=== PATIENT | female | born 1980 | race Caucasian/White ===

== ENCOUNTER 2017-02-14 09:30 | Emergency (ER) | payer SELFPAY ==
[2017-02-14] MEDS ORDERED: diphenhydrAMINE 50 MG/ML SDV IVPUSH ONE (10:00)
[2017-02-14] MEDS ORDERED: Sodium Chloride 0.9% 1,000 ML IV ONE (10:00)
[2017-02-14] MEDS ORDERED: Ondansetron 4 MG/2 ML SDV IVPUSH ONE (10:00)
[2017-02-14] MEDS ORDERED: Ketorolac 30 MG/ML SDV IVPUSH ONE (10:00)
[2017-02-14] MEDS ORDERED: Metoclopramide 10 MG/2 ML SDV IV ONE (10:00)
--- NOTE | 2017-02-14 10:08 | EDM.PDOC ---
ED HPI GENERAL MEDICAL PROBLEM - General Chief Complaint: Headache Stated Complaint: DIZZY Time Seen by Provider: 02/14/17 09:59 - History of Present Illness INITIAL COMMENTS - FREE TEXT/NARRATIVE: HISTORY AND PHYSICAL: History of present illness: Patient 36-year-old female presents with concern of headache she's had this 2 days she states she has history of migraine headaches for years ago but she's been migraine free for the better part of a decade she denies any trauma fever chills she equivocates regarding nausea and photophobia. No neck pain or stiffness no cough no shortness of breath no sore throat or other concerns Review of systems: As per history of present illness and below otherwise all systems reviewed and negative. Past medical history: As per history of present illness and as reviewed below otherwise noncontributory. Surgical history: As per history of present illness and as reviewed below otherwise noncontributory. Social history: No reported history of drug or alcohol abuse. Family history: As per history of present illness and as reviewed below otherwise noncontributory. Physical exam: HEENT: Atraumatic, normocephalic, pupils reactive, negative for conjunctival pallor or scleral icterus, mucous membranes moist, throat clear, neck supple, nontender, trachea midline. Lungs: Clear to auscultation, breath sounds equal bilaterally, chest nontender. Heart: S1S2, regular, negative for clicks, rubs, or JVD. Abdomen: Soft, nondistended, nontender. Negative for masses or hepatosplenomegaly. Negative for costovertebral tenderness. Pelvis: Stable nontender. Genitourinary: Deferred. Rectal: Deferred. Extremities: Atraumatic, negative for cords or calf pain. Neurovascular unremarkable. Neuro: Awake, alert, oriented. Cranial nerves II through XII unremarkable. Cerebellum unremarkable. Motor and sensory unremarkable throughout. Exam nonfocal. Diagnostics: CT brain Therapeutics: Saline 1 L bolus Toradol 30 mg IV Reglan 10 mg IV Zofran 4 mg IV and Benadryl 50 mg IV Impression: #1 cephalgia #2 history of migraine headache Definitive disposition and diagnosis as appropriate pending reevaluation and review of above. Frontal Headache Pain Score (Numeric/FACES): 10 - Related Data Allergies Allergy/AdvReac Type Severity Reaction Status Date / Time No Known Allergies Allergy Verified 02/14/17 09:32 Home Meds: Home Meds . [No Known Home Meds] 02/14/17 [History] Past Medical History Cardiovascular History: Reports: None Respiratory History: Reports: None Gastrointestinal History: Reports: None Genitourinary History: Reports: None [employer] History: Reports: None Musculoskeletal History: Reports: None Neurological History: Reports: None Psychiatric History: Reports: None Endocrine/Metabolic History: Reports: None Dermatologic History: Reports: None - Infectious Disease History Infectious Disease History: Reports: Chicken Pox - Past Surgical History HEENT Surgical History: Reports: Tonsillectomy GI Surgical History: Reports: None Female Surgical History: Reports: Section Musculoskeletal Surgical History: Reports: None Dermatological Surgical History: Reports: None Social & Family History - Tobacco Use Smoking Status *Q: Current Every Day Smoker Years of Tobacco use: 18 Packs/Tins Daily: 0.4 ED ROS GENERAL - Review of Systems Review Of Systems: ROS reveals no pertinent complaints other than HPI. ED EXAM, GENERAL - Physical Exam Exam: See Below (Dictated) Course - Vital Signs Last Recorded V/S: Last Vital Signs Temp 36.9 C 02/14/17 09:32 Pulse 83 02/14/17 09:32 Resp 20 02/14/17 09:32 BP 130/75 02/14/17 09:32 Pulse Ox 99 02/14/17 09:32 - Orders/Labs/Meds Orders: Active Orders 24 hr Category Date Time Status Sodium Chloride 0.9% [Normal Saline] 1,000 ml Med 02/14/17 10:00 Active IV STAT Medication Orders Sodium Chloride (Normal Saline) 1,000 mls @ 999 mls/hr IV STAT ONE Stop: 02/14/17 11:00 Last Admin: 02/14/17 10:06 Dose: 999 mls/hr Meds: Medications Generic Name Dose Route Start Last Admin Trade Name Freq PRN Reason Stop Dose Admin Sodium Chloride 1,000 mls @ 999 mls/hr 02/14/17 10:00 02/14/17 10:06 Normal Saline IV 02/14/17 11:00 999 mls/hr STAT ONE Administration Discontinued Medications Generic Name Dose Route Start Last Admin Trade Name Freq PRN Reason Stop Dose Admin Diphenhydramine HCl 50 mg 02/14/17 10:00 02/14/17 10:08 Benadryl IVPUSH 02/14/17 10:01 50 mg ONETIME ONE Administration Ketorolac Tromethamine 30 mg 02/14/17 10:00 02/14/17 10:07 Toradol IVPUSH 02/14/17 10:01 30 mg ONETIME ONE Administration Metoclopramide HCl 10 mg 02/14/17 10:00 02/14/17 10:08 Reglan IV 02/14/17 10:01 10 mg ONETIME ONE Administration Ondansetron HCl 4 mg 02/14/17 10:00 02/14/17 10:05 Zofran IVPUSH 02/14/17 10:01 4 mg ONETIME ONE Administration Departure - Departure Time of Disposition: 10:42 Disposition: Home, Self-Care 01 Condition: Good Clinical Impression: Cephalgia - Discharge Information Referrals: PCP,None [Primary Care Provider] - Forms: ED Department Discharge Additional Instructions: The following information is given to patients seen in the emergency department who are being discharged to home. This information is to outline your options for follow-up care. We provide all patients seen in our emergency department with a follow-up referral. The need for follow-up, as well as the timing and circumstances, are variable depending upon the specifics of your emergency department visit. If you don't have a primary care physician on staff, we will provide you with a referral. We always advise you to contact your personal physician following an emergency department visit to inform them of the circumstance of the visit and for follow-up with them and/or the need for any referrals to a consulting specialist. The emergency department will also refer you to a specialist when appropriate. This referral assures that you have the opportunity for followup care with a specialist. All of these measure are taken in an effort to provide you with optimal care, which includes your followup. Under all circumstances we always encourage you to contact your private physician who remains a resource for coordinating your care. When calling for followup care, please make the office aware that this follow-up is from your recent emergency room visit. If for any reason you are refused follow-up, please contact the [facility] emergency department at and asked to speak to the emergency department charge nurse. [facility] [address] [place] [id number] [facility] - Neurology Professional Building [address] [place] [address], [address] [place] [address] Follow-up primary medical doctor and/or clinic above call to schedule appointment with neurology above return as needed as discussed - My Orders Last 24 Hours: My Active Orders 02/14/17 10:00 Sodium Chloride 0.9% [Normal Saline] 1,000 ml IV STAT - Assessment/Plan Last 24 Hours: My Active Orders 02/14/17 10:00 Sodium Chloride 0.9% [Normal Saline] 1,000 ml IV STAT
[2017-02-14 10:45] VITALS: BP 118/71
== END 2017-02-14 10:51 | disposition home or self-care (01) ==
LOC: MW.ED 09:30
DX: R51 Headache (principal); F17.210 Nicotine dependence, cigarettes, uncomplicated; Z98.890 Other specified postprocedural states
CPT/HCPCS: 96361; 96374; 96375; 99283; J1200; J1885; J2405; J2765; J7040; 99282

== ENCOUNTER 2019-04-08 09:54 | Emergency (ER) | payer BC, OTHER ==
[2019-04-08 10:06] VITALS: BP 144/84; PULSE 80
--- NOTE | 2019-04-08 10:12 | EDM.PDOC ---
ED HPI GENERAL MEDICAL PROBLEM - General Chief Complaint: Skin Complaint Stated Complaint: SWOLLEN RT FOOT Time Seen by Provider: 04/08/19 10:06 Source of Information: Reports: Patient History Limitations: Reports: No Limitations - History of Present Illness INITIAL COMMENTS - FREE TEXT/NARRATIVE: HISTORY AND PHYSICAL: History of present illness: Patient is a 38-year-old female presents to the ED with complaint of left pinky toe pain. She states she thought it was a fungal infection and has been using OTC fungal cream. She has since developed a blister to the bottom of the foot. She denies fevers, chills, injury or trauma. She denies significant past medical history. Review of systems: As per history of present illness and below otherwise all systems reviewed and negative. Past medical history: As per history of present illness and as reviewed below otherwise noncontributory. Surgical history: As per history of present illness and as reviewed below otherwise noncontributory. Social history: No reported history of drug or alcohol abuse. Family history: As per history of present illness and as reviewed below otherwise noncontributory. Physical exam: General: Patient sitting comfortably in no acute distress and nontoxic appearing HEENT: Atraumatic, normocephalic, pupils reactive, negative for conjunctival pallor or scleral icterus, mucous membranes moist, throat clear, neck supple, nontender, trachea midline. No meningeal signs. Lungs: Clear to auscultation, breath sounds equal bilaterally, chest nontender. Heart: S1S2, regular, negative for clicks, rubs, or overt murmur. Abdomen: Soft, nondistended, nontender. Negative for masses or hepatosplenomegaly. Negative for costovertebral tenderness. No rigidity, rebound , guarding. Pelvis: Stable nontender. Genitourinary: Deferred. Rectal: Deferred. Extremities: There is a blister to the plantar surface of the foot at the base of the 5th digit with mild surrounding erythema. Serous fluid draining from the blister. negative for cords or calf pain. Neurovascular unremarkable. Neuro: Awake, alert, oriented. Cranial nerves II through XII unremarkable. Cerebellum unremarkable. Motor and sensory unremarkable throughout. Exam nonfocal. Notes: Diagnostics: [] Therapeutics: [] Prescriptions: Bactrim Impression: Cellulitis Plan: Take antibiotic as instructed Follow up with primary care provider Return to ED as needed as discussed Definitive disposition and diagnosis as appropriate pending reevaluation and review of above. 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 Musculoskeletal History: Reports: None Neurological History: Reports: None Psychiatric History: Reports: None Endocrine/Metabolic History: Reports: None Dermatologic History: Reports: None - Infectious Disease History Infectious Disease History: Reports: Chicken Pox - Past Surgical History HEENT Surgical History: Reports: Tonsillectomy GI Surgical History: Reports: None Female Surgical History: Reports: Section Musculoskeletal Surgical History: Reports: None Dermatological Surgical History: Reports: None ED ROS GENERAL - Review of Systems Review Of Systems: ROS reveals no pertinent complaints other than HPI. ED EXAM, SKIN/RASH Exam: See Below (see dictation) Course - Vital Signs Last Recorded V/S: Last Vital Signs Temp 96.8 F 04/08/19 10:04 Pulse 80 04/08/19 10:04 Resp 18 04/08/19 10:04 BP 144/84 H 04/08/19 10:04 Pulse Ox 94 L 04/08/19 10:04 Departure - Departure Time of Disposition: 10:09 Disposition: Home, Self-Care 01 Condition: Good Clinical Impression: Cellulitis - Discharge Information Prescriptions: Sulfamethoxazole/Trimethoprim [Bactrim Ds Tablet] 1 each PO BID 7 Days #14 tablet Referrals: Rainer Perdomo [Primary Care Provider] - Forms: ED Department Discharge Additional Instructions: The following information is given to patients seen in the emergency department who are being discharged to home. This information is to outline your options for follow-up care. We provide all patients seen in our emergency department with a follow-up referral. The need for follow-up, as well as the timing and circumstances, are variable depending upon the specifics of your emergency department visit. If you don't have a primary care physician on staff, we will provide you with a referral. We always advise you to contact your personal physician following an emergency department visit to inform them of the circumstance of the visit and for follow-up with them and/or the need for any referrals to a consulting specialist. The emergency department will also refer you to a specialist when appropriate. This referral assures that you have the opportunity for follow-up care with a specialist. All of these measure are taken in an effort to provide you with optimal care, which includes your follow-up. Under all circumstances we always encourage you to contact your private physician who remains a resource for coordinating your care. When calling for follow-up care, please make the office aware that this follow-up is from your recent emergency room visit. If for any reason you are refused follow-up, please contact the [facility] Emergency Department at and asked to speak to the emergency department charge nurse. [facility] [address] [place] [address] [id number] [facility] [address] [place] [id number] Take antibiotic as instructed Follow up with primary care provider Return to ED as needed as discussed
== END 2019-04-08 10:20 | disposition home or self-care (01) ==
LOC: MW.ED 09:54
DX: L03.032 Cellulitis of left toe (principal)
CPT/HCPCS: 99282; 99283

== ENCOUNTER 2019-07-08 09:19 | Emergency (ER) | payer BC, OTHER ==
--- NOTE | 2019-07-08 09:47 | EDM.PDOC ---
ED HPI GENERAL MEDICAL PROBLEM - General Chief Complaint: Respiratory Problem Stated Complaint: COUGH/CHEST CONGESTION/CHEST PAIN Time Seen by Provider: 07/08/19 09:37 Source of Information: Reports: Patient History Limitations: Reports: No Limitations - History of Present Illness INITIAL COMMENTS - FREE TEXT/NARRATIVE: This 38 year old female was admitted to the ED with a chief complaint of increase coughing and congestion since Wednesday (4 days). She states that she has been coughing up green sputum since Wednesday. She states that she was seen by her PCP on Wednesday who put her on Augmentin. She states that she is not getting any better so she came to the ED for further evaluation. She is status post tubal ligation. 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, Musculoskeletal History: Reports: None Neurological History: Reports: None Psychiatric History: Reports: None Endocrine/Metabolic History: Reports: None Hematologic History: Reports: None Immunologic History: Reports: None Oncologic (Cancer) History: Reports: None Dermatologic History: Reports: None - Infectious Disease History Infectious Disease History: Reports: Chicken Pox - Past Surgical History Head Surgeries/Procedures: Reports: None HEENT Surgical History: Reports: Tonsillectomy GI Surgical History: Reports: None Female Surgical History: Reports: Section Musculoskeletal Surgical History: Reports: None Oncologic Surgical History: Reports: None Dermatological Surgical History: Reports: None Social & Family History - Family History Family Medical History: Noncontributory - Tobacco Use Smoking Status *Q: Current Every Day Smoker Years of Tobacco use: 20 Packs/Tins Daily: 1 - Caffeine Use Caffeine Use: Reports: Coffee - Recreational Drug Use Recreational Drug Use: No ED ROS GENERAL - Review of Systems Review Of Systems: See Below Constitutional: Reports: Fever, Weakness HEENT: Reports: No Symptoms Respiratory: Reports: Shortness of Breath, Sputum (green) Cardiovascular: Reports: Chest Pain (with coughing) Endocrine: Reports: No Symptoms GI/Abdominal: Reports: No Symptoms : Reports: No Symptoms Musculoskeletal: Reports: No Symptoms Skin: Reports: No Symptoms Neurological: Reports: No Symptoms ED EXAM, GENERAL - Physical Exam Exam: See Below Exam Limited By: No Limitations General Appearance: Alert, WD/WN, No Apparent Distress Eye Exam: Bilateral Eye: Normal Inspection, PERRL Ears: Normal External Exam, Normal Canal, Hearing Grossly Normal, Normal TMs Ear Exam: Bilateral Ear: Auricle Normal, Canal Normal, TM normal Nose: Normal Inspection, Normal Mucosa, No Blood Throat/Mouth: Normal Inspection, Normal Lips, Normal Teeth, Normal Gums, Normal Oropharynx, Normal Voice, No Airway Compromise Head: Atraumatic, Normocephalic Neck: Normal Inspection, Supple, Non-Tender, Full Range of Motion Respiratory/Chest: No Respiratory Distress, Rales (right lower base), Rhonchi ( right lower base). No: Wheezing Cardiovascular: Normal Peripheral Pulses, Regular Rate, Rhythm, No Edema, No Gallop, No JVD, No Murmur, No Rub Peripheral Pulses: 3+: Carotid (L), Carotid (R), Dorsalis Pedis (L), Dorsalis Pedis (R) GI/Abdominal: Normal Bowel Sounds, Soft, Non-Tender, No Organomegaly, No Distention, No Abnormal Bruit, No Mass (Female) Exam: Deferred Rectal (Female) Exam: Deferred Back Exam: Normal Inspection, Full Range of Motion, NT Extremities: Normal Inspection, Normal Range of Motion, Non-Tender, Normal Capillary Refill, No Pedal Edema Neurological: Alert, Oriented, CN II-XII Intact, Normal Cognition, Normal Gait, Normal Reflexes, No Motor/Sensory Deficits Course - Vital Signs Text/Narrative:: Patient is doing better but does have RLL pneumonia. She will stop her amoxicillin and replace it with Levaquin. She will be discharged. She agrees with the discharge plan. Last Recorded V/S: Last Vital Signs Temp 98 F 07/08/19 09:31 Pulse 93 07/08/19 09:31 Resp 18 07/08/19 09:31 BP 141/71 H 07/08/19 09:31 Pulse Ox 92 L 07/08/19 09:31 - Orders/Labs/Meds Orders: Active Orders 24 hr Category Date Time Status levoFLOXacin [Levaquin] Med 07/08/19 12:08 Once 500 mg PO ONETIME ONE predniSONE Med 07/08/19 12:08 Once 20 mg PO ONETIME ONE Medication Orders Levofloxacin (Levaquin) 500 mg PO ONETIME ONE Stop: 07/08/19 12:09 Meds: Medications Generic Name Dose Route Start Last Admin Trade Name Frejeannette PRN Reason Stop Dose Admin Levofloxacin 500 mg 07/08/19 12:08 Levaquin PO 07/08/19 12:09 ONETIME ONE Departure - Departure Time of Disposition: 12:12 Disposition: Home, Self-Care 01 Condition: Good Clinical Impression: Pneumonia involving right lung Qualifiers: Pneumonia type: due to unspecified organism Lung location: lower lobe of lung Qualified Code(s): J18.9 - Pneumonia, unspecified organism - Discharge Information *PRESCRIPTION DRUG MONITORING PROGRAM REVIEWED*: Yes *COPY OF PRESCRIPTION DRUG MONITORING REPORT IN PATIENT REYES: Yes Instructions: Community-Acquired Pneumonia, Adult, [id number] [facility] - Forms: ED Department Discharge Additional Instructions: Take all medications as directed. Follow up with your PCP in the next two to four days. Drink plenty of clear liquids for the next 24-48 hours. Rest for the next 24 hours. Return to the ED if your condition gets worse or should you have any questions or concerns. The following information is given to patients seen in the emergency department who are being discharged to home. This information is to outline your options for follow-up care. We provide all patients seen in our emergency department with a follow-up referral. The need for follow-up, as well as the timing and circumstances, are variable depending upon the specifics of your emergency department visit. If you don't have a primary care physician on staff, we will provide you with a referral. We always advise you to contact your personal physician following an emergency department visit to inform them of the circumstance of the visit and for follow-up with them and/or the need for any referrals to a consulting specialist. The emergency department will also refer you to a specialist when appropriate. This referral assures that you have the opportunity for follow-up care with a specialist. All of these measure are taken in an effort to provide you with optimal care, which includes your follow-up. Under all circumstances we always encourage you to contact your private physician who remains a resource for coordinating your care. When calling for follow-up care, please make the office aware that this follow-up is from your recent emergency room visit. If for any reason you are refused follow-up, please contact the [facility] Emergency Department at and asked to speak to the emergency department charge nurse. Sepsis Event Note - Evaluation Sepsis Screening Result: No Definite Risk - Focused Exam Vital Signs: Vital Signs Temp Pulse Resp BP Pulse Ox 07/08/19 09:31 98 F 93 18 141/71 H 92 L Date Exam was Performed: 07/08/19 Time Exam was Performed: 12:10 - My Orders Last 24 Hours: My Active Orders 07/08/19 12:08 levoFLOXacin [Levaquin] 500 mg PO ONETIME ONE predniSONE 20 mg PO ONETIME ONE - Assessment/Plan Last 24 Hours: My Active Orders 07/08/19 12:08 levoFLOXacin [Levaquin] 500 mg PO ONETIME ONE predniSONE 20 mg PO ONETIME ONE
--- NOTE | 2019-07-08 11:10 | CR ---
Chest: 2 views of the chest were obtained. Comparison: Prior chest x-ray of 04/27/16. Focal area of increased density noted within the right mid to lower lung. Lung markings are also increased within the right lung base. Left lung is clear. Heart size and mediastinum are normal. Impression: 1. Findings which are felt compatible with early area of pneumonia within the right mid to lower lung. Diagnostic code #3 This report was dictated in [place] Standard Time
[2019-07-08] MEDS ORDERED: predniSONE 20 MG Tab PO ONE (12:08)
[2019-07-08] MEDS ORDERED: Levofloxacin 500 MG Tab PO ONE (12:08)
[2019-07-08] MEDS ORDERED: Albuterol/Ipratropium 3.0-0.5 MG/3 ML Neb Soln NEB ONE (12:20)
[2019-07-08 12:54] VITALS: BP 135/67; PULSE 90
== END 2019-07-08 12:53 | disposition home or self-care (01) ==
LOC: MW.ED 09:19
DX: J18.9 Pneumonia, unspecified organism (principal); F17.210 Nicotine dependence, cigarettes, uncomplicated
CPT/HCPCS: 71046; 87804; 94640; 99285; A9270; 99283; J7620-GY

== ENCOUNTER 2019-07-10 09:40 | Emergency (ER) | payer BC, OTHER ==
[2019-07-10] MEDS ORDERED: Albuterol/Ipratropium 3.0-0.5 MG/3 ML Neb Soln NEB ONE (10:20)
[2019-07-10] MEDS ORDERED: methylPREDNISolone Sodium Succinate 125 MG/2 ML SDV IM ONE (10:20)
[2019-07-10] MEDS ORDERED: methylPREDNISolone Sodium Succinate 125 MG/2 ML SDV IVPUSH ONE (10:21)
--- NOTE | 2019-07-10 11:03 | EDM.PDOC ---
ED HPI GENERAL MEDICAL PROBLEM - General Chief Complaint: Respiratory Problem Stated Complaint: PNEUMONIA Time Seen by Provider: 07/10/19 10:10 Source of Information: Reports: Patient History Limitations: Reports: No Limitations - History of Present Illness INITIAL COMMENTS - FREE TEXT/NARRATIVE: HISTORY AND PHYSICAL: History of present illness: Patient is a 38-year-old female who presents to the ED today with concern of pneumonia symptoms are not improving. Patient states she was diagnosed with pneumonia 2 days ago and still is coughing and feels lightheaded when she coughs. Patient states prior to the diagnosis of pneumonia she was smoking but has not been smoking cigarettes since she was diagnosed with pneumonia as it is been too difficult according to patient. Patient was originally placed on Augmentin for 3 days by a primary care provider and then was seen and evaluated in the ED on 07/08/2019 and was told to stop Augmentin and was switched to Levaquin. Patient states that she has taken the Levaquin dose but has not taken her dose today as she normally takes it with lunch. Patient states her coughing and symptoms have not worsened just have not yet improved. She has a history of tubal ligation. Patient denies fever, chills, chest pain, shortness of breath. Denies headache, neck stiff ness, change in vision, syncope, or near syncope. Denies nausea, vomiting, abdominal pain, diarrhea, constipation, or dysuria. Has not noted any blood in urine or stool. Patient has been eating and drinking appropriately. Review of systems: As per history of present illness and below otherwise all systems reviewed and negative. Past medical history: As per history of present illness and as reviewed below otherwise noncontributory. Surgical history: As per history of present illness and as reviewed below otherwise noncontributory. Social history: See social history for further information Family history: As per history of present illness and as reviewed below otherwise noncontributory. Physical exam: General: Patient is alert, oriented, and in no acute distress. Patient sitting comfortably on exam table. HEENT: Atraumatic, normocephalic, pupils equal and reactive bilaterally, negative for conjunctival pallor or scleral icterus, mucous membranes moist, TMs normal bilaterally, throat clear, neck supple, nontender, trachea midline. No drooling or trismus noted. No meningeal signs. No hot potato voice noted. Lungs: Clear to auscultation, breath sounds equal bilaterally, chest nontender. Heart: S1S2, regular rate and rhythm without overt murmur Abdomen: Soft, nondistended, nontender. Negative for masses or hepatosplenomegaly. Negative for costovertebral tenderness. Pelvis: Stable nontender. Genitourinary: Deferred. Rectal: Deferred. Skin: Intact, warm, dry. No lesions or rashes noted. Extremities: Atraumatic, negative for cords or calf pain. Neurovascular unremarkable. Neuro: Awake, alert, oriented. Cranial nerves II through XII unremarkable. Cerebellum unremarkable. Motor and sensory unremarkable throughout. Exam nonfocal. Notes: PSI class I. Outpatient management appropriate. Voices understanding and is agreeable to plan of care. Denies any further questions or concerns at this time. Diagnostics: CBC, CMP, CXR, Lactate, Blood culture x 2 Therapeutics: Duoneb, solumedrol, Rocephin Prescription: Proair inhaler Impression: Right middle lung pneumonia, treatment day 2, subsequent encounter Plan: 1. Continue antibiotics that have been prescribed to you already from your prior ED visit. Take medication as prescribed. 2. You can alternate ibuprofen and Tylenol as directed for pain and discomfort. 3. Follow-up with a primary care provider as discussed. Return to the ED as needed and as discussed. Definitive disposition and diagnosis as appropriate pending reevaluation and review of above. - Related Data Allergies Allergy/AdvReac Type Severity Reaction Status Date / Time No Known Allergies Allergy Verified 07/10/19 10:02 Home Meds: Home Meds levoFLOXacin [Levaquin] 500 mg PO DAILY 7 Days #7 tablet 07/08/19 [Rx] Past Medical History HEENT History: Reports: None Cardiovascular History: Reports: None Respiratory History: Reports: None Gastrointestinal History: Reports: None Genitourinary History: Reports: None DES[employer] History: Reports: None, Musculoskeletal History: Reports: None Neurological History: Reports: None Psychiatric History: Reports: None Endocrine/Metabolic History: Reports: None Hematologic History: Reports: None Immunologic History: Reports: None Oncologic (Cancer) History: Reports: None Dermatologic History: Reports: None - Infectious Disease History Infectious Disease History: Reports: Chicken Pox - Past Surgical History Head Surgeries/Procedures: Reports: None HEENT Surgical History: Reports: Tonsillectomy GI Surgical History: Reports: None Female Surgical History: Reports: Section Musculoskeletal Surgical History: Reports: None Oncologic Surgical History: Reports: None Dermatological Surgical History: Reports: None Social & Family History - Family History Family Medical History: Noncontributory - Tobacco Use Smoking Status *Q: Current Every Day Smoker Years of Tobacco use: 20 Packs/Tins Daily: 1 - Caffeine Use Caffeine Use: Reports: None - Recreational Drug Use Recreational Drug Use: No ED ROS GENERAL - Review of Systems Review Of Systems: Comprehensive ROS is negative, except as noted in HPI. ED EXAM, GENERAL - Physical Exam Exam: See Below (see dictation) Course - Vital Signs Last Recorded V/S: Last Vital Signs Temp 97.2 F 07/10/19 10:02 Pulse 82 07/10/19 10:02 Resp 16 07/10/19 10:02 BP 128/71 07/10/19 10:02 Pulse Ox 92 L 07/10/19 10:02 - Orders/Labs/Meds Orders: Active Orders 24 hr Category Date Time Status RT Aerosol Therapy [RC] ASDIRECTED Care 07/10/19 10:20 Active CULTURE BLOOD [BC] Stat Lab 07/10/19 10:50 Received CULTURE BLOOD [BC] Stat Lab 07/10/19 10:57 Received Sodium Chloride 0.9% [Saline Flush] Med 07/10/19 11:30 Active 10 ml FLUSH ASDIRECTED Blood Culture x2 Reflex Set [OM.PC] Stat Oth 07/10/19 10:20 Ordered Medication Orders Sodium Chloride (Saline Flush) 10 ml FLUSH ASDIRECTED GOSIA Last Admin: 07/10/19 11:17 Dose: 10 ml Labs: Laboratory Tests 07/10/19 07/10/19 07/10/19 Range/Units 10:34 10:34 10:34 WBC 9.94 (4.0-11.0) K/uL RBC 4.59 (4.30-5.90) M/uL Hgb 14.2 (12.0-16.0) g/dL Hct 42.6 (36.0-46.0) % MCV 92.8 (80.0-98.0) fL MCH 30.9 (27.0-32.0) pg MCHC 33.3 (31.0-37.0) g/dL RDW Std Deviation 46.8 (28.0-62.0) fl RDW Coeff of Gamal 14 (11.0-15.0) % Plt Count 366 (150-400) K/uL MPV 10.40 (7.40-12.00) fL Add Manual Diff YES Neutrophils % (Manual) 65 (48.0-80.0) % Band Neutrophils % 3 % Lymphocytes % (Manual) 26 (16.0-40.0) % Monocytes % (Manual) 5 (0.0-15.0) % Basophils % (Manual) 1 (0.0-1.5) % Nucleated RBC % 0.0 /100WBC Absolute Seg Neuts 6.5 H (1.4-5.7) Band Neutrophils # 0.3 Lymphocytes # (Manual) 2.6 H (0.6-2.4) Monocytes # (Manual) 0.5 (0.0-0.8) Basophils # (Manual) 0.1 (0.0-0.1) Nucleated RBCs # 0 K/uL Plt Morphology Comment Lactate 0.9 (0.20-2.00) mmol/L Sodium 136 (136-145) mmol/L Potassium 3.6 (3.5-5.1) mmol/L Chloride 100 (98-107) mmol/L Carbon Dioxide 26.3 (21.0-32.0) mmol/L BUN 6 L (7.0-18.0) mg/dL Creatinine 0.8 (0.6-1.0) mg/dL Est Cr Clr Drug Dosing 99.64 mL/min Estimated GFR (MDRD) > 60.0 ml/min Glucose 99 (74-106) mg/dL Calcium 9.3 (8.5-10.1) mg/dL Total Bilirubin 0.2 (0.2-1.0) mg/dL AST 69 H (15-37) IU/L ALT 77 H (14-63) IU/L Alkaline Phosphatase 81 (46-116) U/L Total Protein 7.9 (6.4-8.2) g/dL Albumin 3.5 (3.4-5.0) g/dL Globulin 4.4 H (2.6-4.0) g/dL Albumin/Globulin Ratio 0.8 L (0.9-1.6) Meds: Medications Generic Name Dose Route Start Last Admin Trade Name Freq PRN Reason Stop Dose Admin Sodium Chloride 10 ml 02/10/20 11:30 07/10/19 11:17 Saline Flush FLUSH 10 ml ASDIRECTED GOSIA Administration Discontinued Medications Generic Name Dose Route Start Last Admin Trade Name Teresita PRN Reason Stop Dose Admin Albuterol/Ipratropium 3 ml 07/10/19 10:20 07/10/19 10:49 Duoneb 3.0-0.5 Mg/3 Ml NEB 07/10/19 10:21 3 ml ONETIME ONE Administration Methylprednisolone Sodium Succinate 125 mg 07/10/19 10:20 07/10/19 11:00 Solu-Medrol IM 07/10/19 10:21 Not Given ONETIME ONE Methylprednisolone Sodium Succinate 125 mg 07/10/19 10:21 07/10/19 11:16 Solu-Medrol IVPUSH 07/10/19 10:22 125 mg ONETIME ONE Administration Departure - Departure Time of Disposition: 11:49 Disposition: Home, Self-Care 01 Clinical Impression: Pneumonia involving right lung Qualifiers: Pneumonia type: due to unspecified organism Lung location: lower lobe of lung Qualified Code(s): J18.9 - Pneumonia, unspecified organism - Discharge Information Referrals: [facility] [Primary Care Provider] - Forms: ED Department Discharge Additional Instructions: The following information is given to patients seen in the emergency department who are being discharged to home. This information is to outline your options for follow-up care. We provide all patients seen in our emergency department with a follow-up referral. The need for follow-up, as well as the timing and circumstances, are variable depending upon the specifics of your emergency department visit. If you don't have a primary care physician on staff, we will provide you with a referral. We always advise you to contact your personal physician following an emergency department visit to inform them of the circumstance of the visit and for follow-up with them and/or the need for any referrals to a consulting specialist. The emergency department will also refer you to a specialist when appropriate. This referral assures that you have the opportunity for follow-up care with a specialist. All of these measure are taken in an effort to provide you with optimal care, which includes your follow-up. Under all circumstances we always encourage you to contact your private physician who remains a resource for coordinating your care. When calling for follow-up care, please make the office aware that this follow-up is from your recent emergency room visit. If for any reason you are refused follow-up, please contact the [facility] Emergency Department at and asked to speak to the emergency department charge nurse. [facility] [address] [place] [address] [facility] [address] [place] [address] 1. Continue antibiotics that have been prescribed to you already from your prior ED visit. Take medication as prescribed. 2. You can alternate ibuprofen and Tylenol as directed for pain and discomfort. 3. Follow-up with a primary care provider as discussed. Return to the ED as needed and as discussed. Sepsis Event Note - Evaluation Sepsis Screening Result: No Definite Risk - Focused Exam Vital Signs: Vital Signs Temp Pulse Resp BP Pulse Ox 07/10/19 10:02 97.2 F 82 16 128/71 92 L Date Exam was Performed: 07/10/19 Time Exam was Performed: 11:45 - My Orders Last 24 Hours: My Active Orders 07/10/19 10:20 RT Aerosol Therapy [RC] ASDIRECTED Blood Culture x2 Reflex Set [OM.PC] Stat 07/10/19 10:50 CULTURE BLOOD [BC] Stat 07/10/19 10:57 CULTURE BLOOD [BC] Stat 07/10/19 11:30 Sodium Chloride 0.9% [Saline Flush] 10 ml FLUSH ASDIRECTED - Assessment/Plan Last 24 Hours: My Active Orders 07/10/19 10:20 RT Aerosol Therapy [RC] ASDIRECTED Blood Culture x2 Reflex Set [OM.PC] Stat 07/10/19 10:50 CULTURE BLOOD [BC] Stat 07/10/19 10:57 CULTURE BLOOD [BC] Stat 07/10/19 11:30 Sodium Chloride 0.9% [Saline Flush] 10 ml FLUSH ASDIRECTED
--- NOTE | 2019-07-10 11:12 | CR ---
Chest: 2 views of the chest were obtained. Comparison: Previous chest x-ray of 07/08/19. Findings: Continued increase density within the medial right lung base is seen which is fairly stable from prior exam. Lungs otherwise are clear. Heart size and mediastinum are normal. Bony structures are unremarkable. Impression: 1. Stable increased density within the medial right lung base. 2. Other portions of the 2 view chest x-ray are unremarkable. Diagnostic code #3 Study was dictated in [place] Standard Time
[2019-07-10 11:21] LABS: BLOOD UREA NITROGEN,BUN 6 mg/dL (7.0-18.0); CARBON DIOXIDE,CO2 26.3 mmol/L (21.0-32.0); CHLORIDE,CL 100 mmol/L (98-107); GLUCOSE RANDOM 99 mg/dL (74-106); POTASSIUM,K 3.6 mmol/L (3.5-5.1); SODIUM,NA 136 mmol/L (136-145)
[2019-07-10] MEDS ORDERED: Sodium Chloride 0.9% 10 ML Syringe FLUSH SCH (11:30)
[2019-07-10] MEDS ORDERED: cefTRIAXone 1 GM in Premix Bag 1 BAG IV ONE (11:47)
[2019-07-10 12:32] VITALS: BP 112/68; PULSE 84
== END 2019-07-10 12:28 | disposition home or self-care (01) ==
LOC: MW.ED 09:40
DX: J18.9 Pneumonia, unspecified organism (principal); F17.210 Nicotine dependence, cigarettes, uncomplicated; Z98.890 Other specified postprocedural states
CPT/HCPCS: 36415; 71046; 80053; 83605; 85025; 87040; 96374; 96375; 99284; J0696; J2930; 99282; J7620-GY

== ENCOUNTER 2021-09-12 09:12 | Emergency (ER) | payer OTHER ==
[2021-09-12] MEDS ORDERED: Sodium Chloride 0.9% 1,000 ML IV ONE (09:25)
[2021-09-12] MEDS ORDERED: Ketorolac 30 MG/ML SDV IVPUSH ONE (09:25)
[2021-09-12] MEDS ORDERED: Morphine 4 MG/ML VIAL IVPUSH ONE (09:36)
[2021-09-12] MEDS ORDERED: Ondansetron 4 MG/2 ML SDV IVPUSH ONE (09:36)
[2021-09-12 10:14] LABS: BLOOD UREA NITROGEN,BUN 13 mg/dL (7.0-18.0); CARBON DIOXIDE,CO2 25.6 mmol/L (21.0-32.0); CHLORIDE,CL 105 mmol/L (98-107); GLUCOSE RANDOM 99 mg/dL (74-106); LIPASE 127 U/L (73-393); POTASSIUM,K 3.7 mmol/L (3.5-5.1); SODIUM,NA 140 mmol/L (136-145)
[2021-09-12 12:18] VITALS: BP 112/55; PULSE 69
[2021-09-12] MEDS ORDERED: Iopamidol 755 MG/ML 500 ML Multipack Bottle IVPUSH ONE (15:34)
== END 2021-09-12 12:20 | disposition home or self-care (01) ==
LOC: MW.ED 09:12
DX: K57.92 Diverticulitis of intestine, part unspecified, without perforation or abscess without bleeding (principal); D64.9 Anemia, unspecified
CPT/HCPCS: 36415; 74177; 80053; 81003; 81025; 83690; 85025; 96374; 96375; 99284; J2270; J2405; J7030; Q9967

== ENCOUNTER 2021-10-09 08:31 | Inpatient (IN) | payer OTHER ==
[2021-10-09] MEDS ORDERED: Sodium Chloride 0.9% 10 ML Syringe FLUSH PRN (10:50)
[2021-10-09] MEDS ORDERED: Ketorolac 30 MG/ML SDV IVPUSH ONE (10:50)
[2021-10-09] MEDS ORDERED: Sodium Chloride 0.9% 2.5 ML Syringe FLUSH PRN ×2 (10:50→14:10)
[2021-10-09] MEDS ORDERED: Ondansetron 4 MG/2 ML SDV IVPUSH ONE (10:50)
[2021-10-09] MEDS ORDERED: Sodium Chloride 0.9% 1,000 ML IV ONE (10:50)
[2021-10-09] MEDS ORDERED: fentaNYL 50 MCG/ML SDV IVPUSH ONE (10:53)
[2021-10-09] MEDS ORDERED: Piperacillin/Tazobactam 4.5 GM in Sodium Chloride 0.9% 100 ML IV ONE (10:54)
[2021-10-09 12:00] LABS: BLOOD UREA NITROGEN,BUN 9 mg/dL (7.0-18.0); CARBON DIOXIDE,CO2 22.6 mmol/L (21.0-32.0); CHLORIDE,CL 99 mmol/L (98-107); GLUCOSE RANDOM 88 mg/dL (74-106); LIPASE 92 U/L (73-393); POTASSIUM,K 3.5 mmol/L (3.5-5.1); SODIUM,NA 135 mmol/L (136-145)
[2021-10-09] MEDS: Lactated Ringers 1,000 ML IV SCH (15:05)
[2021-10-09] MEDS: Morphine 2 MG/ML SYRINGE IVPUSH PRN ×3 (15:16→20:09)
[2021-10-09] MEDS: Pantoprazole 40 MG in Sodium Chloride 0.9% 10 ML IVPUSH SCH (15:22)
[2021-10-09] MEDS: Piperacillin/Tazobactam 3.375 GM in Sodium Chloride 0.9% 50 ML IV SCH ×2 (17:36→21:30)
[2021-10-09] MEDS: Acetaminophen 1,000 MG in Premix Bag 1 BAG IV SCH (20:11)
[2021-10-09] MEDS: Ketorolac 30 MG/ML SDV IVPUSH SCH (21:17)
[2021-10-10] MEDS: Lactated Ringers 1,000 ML IV SCH ×2 (00:26→08:10)
[2021-10-10] MEDS: Morphine 2 MG/ML SYRINGE IVPUSH PRN (00:27)
[2021-10-10] MEDS: Acetaminophen 1,000 MG in Premix Bag 1 BAG IV SCH ×4 (01:36→20:04)
[2021-10-10] MEDS: Ondansetron 4 MG/2 ML SDV IVPUSH PRN ×2 (01:53→23:32)
[2021-10-10] MEDS: Piperacillin/Tazobactam 3.375 GM in Sodium Chloride 0.9% 50 ML IV SCH ×4 (04:18→22:29)
[2021-10-10] MEDS: Ketorolac 30 MG/ML SDV IVPUSH SCH ×4 (04:19→21:17)
[2021-10-10 06:14] LABS: BLOOD UREA NITROGEN,BUN 15 mg/dL (7.0-18.0); CARBON DIOXIDE,CO2 20.5 mmol/L (21.0-32.0); CHLORIDE,CL 104 mmol/L (98-107); GLUCOSE RANDOM 69 mg/dL (74-106); POTASSIUM,K 3.3 mmol/L (3.5-5.1); SODIUM,NA 138 mmol/L (136-145)
[2021-10-10] MEDS ORDERED: 50% Dextrose in Water 50 ML Syringe IVPUSH ONE (07:54)
[2021-10-10] MEDS: Dextrose 5%-Lactated Ringers 1,000 ML IV SCH ×3 (08:08→23:31)
[2021-10-10] MEDS ORDERED: Potassium Chloride 40 MEQ in Dextrose 5%-Lactated Ringers 1,000 ML IV ONE (08:09)
[2021-10-10] MEDS ORDERED: Morphine 2 MG/ML SYRINGE IVPUSH PRN (09:06)
[2021-10-10] MEDS: Morphine 4 MG/ML VIAL IVPUSH PRN ×3 (13:15→22:38)
[2021-10-10] MEDS: Pantoprazole 40 MG in Sodium Chloride 0.9% 10 ML IVPUSH SCH (13:31)
[2021-10-11] MEDS: Acetaminophen 1,000 MG in Premix Bag 1 BAG IV SCH ×2 (02:01→07:51)
[2021-10-11] MEDS: Ketorolac 30 MG/ML SDV IVPUSH SCH ×3 (04:12→15:41)
[2021-10-11] MEDS: Ondansetron 4 MG/2 ML SDV IVPUSH PRN ×3 (04:26→14:35)
[2021-10-11] MEDS: Piperacillin/Tazobactam 3.375 GM in Sodium Chloride 0.9% 50 ML IV SCH ×3 (04:27→15:43)
[2021-10-11] MEDS: Morphine 4 MG/ML VIAL IVPUSH PRN (04:54)
[2021-10-11 06:05] LABS: BLOOD UREA NITROGEN,BUN 10 mg/dL (7.0-18.0); CARBON DIOXIDE,CO2 24.2 mmol/L (21.0-32.0); CHLORIDE,CL 106 mmol/L (98-107); GLUCOSE RANDOM 139 mg/dL (74-106); POTASSIUM,K 3.5 mmol/L (3.5-5.1); SODIUM,NA 138 mmol/L (136-145)
[2021-10-11] MEDS ORDERED: LORazepam 0.5 MG Tab PO ONE (09:39)
[2021-10-11] MEDS ORDERED: Promethazine 25 MG/ML SDV IM PRN (09:40)
[2021-10-11] MEDS ORDERED: HYDROmorphone 1 MG/ML Syringe IVPUSH PRN (09:42)
[2021-10-11] MEDS: Pantoprazole 40 MG in Sodium Chloride 0.9% 10 ML IVPUSH SCH (14:28)
[2021-10-11 14:46] VITALS: PULSE 72
[2021-10-11 15:56] VITALS: BP 118/74
[2021-10-11] MEDS ORDERED: Iopamidol 755 MG/ML 500 ML Multipack Bottle IVPUSH ONE (17:16)
== END 2021-10-11 16:30 | disposition home or self-care (01) | DRG 392 ==
LOC: MW.ED 08:31 → MW.MS 13:17 → UNDOADMIN 13:27
PROVIDERS: ADMIT Surgery; ATTEND Student in an Organized Health Care Education/Training Program
PROC: 30233N1 Transfusion of Nonautologous Red Blood Cells into Peripheral Vein, Percutaneous Approach (ICD-10-PCS; principal; 2021-10-10)
DX: K57.20 Diverticulitis of large intestine with perforation and abscess without bleeding (principal); N30.00 Acute cystitis without hematuria; K56.7 Ileus, unspecified; D50.9 Iron deficiency anemia, unspecified; E66.9 Obesity, unspecified; F17.200 Nicotine dependence, unspecified, uncomplicated; Z20.822 Contact with and (suspected) exposure to COVID-19; N63.21 Unspecified lump in the left breast, upper outer quadrant; F10.11 Alcohol abuse, in remission; K80.20 Calculus of gallbladder without cholecystitis without obstruction; Z98.891 History of uterine scar from previous surgery; Z68.32 Body mass index [BMI] 32.0-32.9, adult
CPT/HCPCS: 36415; 36430; 74019; 74019-26; 74176; 74176-26; 74177; 74177-26; 76642-LT; 76642-LT-26; 80048; 80053; 81001; 81025; 82607; 82728; 82746; 82947; 83550; 83690; 83735; 85025; 85045; 86850; 86900; 86901; 86920; 87086; 96365; 96375; 99284-25; A9270-GY; C9113; J0131; J1170; J1885; J2270; J2405; J2543; J2550; J3010; J3480; J3490; J7030; J7120; J7121; P9016; Q9967; U0002

== ENCOUNTER 2022-01-21 12:26 | Emergency (ER) | payer OTHER ==
[2022-01-21] MEDS ORDERED: Sodium Chloride 0.9% 1,000 ML IV ONE (13:13)
[2022-01-21 15:01] LABS: POTASSIUM,K 3.3 mmol/L (3.5-5.1)
[2022-01-21] MEDS ORDERED: Iopamidol 755 MG/ML 500 ML Multipack Bottle IVPUSH STA (15:46)
[2022-01-21 16:30] VITALS: BP 115/63; PULSE 65
== END 2022-01-21 16:55 | disposition home or self-care (01) ==
LOC: MW.ED 12:26
DX: K94.09 Other complications of colostomy (principal); E66.9 Obesity, unspecified; Z68.28 Body mass index [BMI] 28.0-28.9, adult; Z90.49 Acquired absence of other specified parts of digestive tract
CPT/HCPCS: 36415; 74177; 80053; 85025; 96361; 96374; 99284; J1642; J7030; Q9967